=== PATIENT | male | born 1940 | race Caucasian/White ===

== ENCOUNTER 2024-05-18 19:35 | Emergency (ER) | payer MEDICARE, OTHER, SELFPAY ==
[2024-05-18 19:41] VITALS: BP 168/96
--- NOTE | 2024-05-18 20:16 | ED.GENMED ---
History of Present Illness
<Alberto Foster DO, Resident - Last Filed: 05/20/24 06:24>
General
Chief Complaint: Weakness
Source: patient and spouse
Time Seen by Provider: 05/18/24 20:05
History of Present Illness
History of Present Illness:
Pt is an 83 YO M with PMH of diabetes, chronic afib, HTN, HLD, and Chron's with ileostomy presenting to the ED after experiencing acute SOB and CP for about an hour today which awoke him from a nap. He reports never feeling this sensation before and
that it 'triggered his sciatica' as well. He reports no headaches, vomiting, ongoing chest pain, or new vision changes. He does report nausea, mild SOB, chronic numbness and tingling, and ringing in his ears.
If applicable-neuro sx onset
Onset of symptoms known: Yes
Date of onset of symptoms: 05/18/24
Past History
<Alberto Foster DO, Resident - Last Filed: 05/20/24 06:24>
Past History
ED Past Medical History: Arrthythmia (Atrial fib), CAD, Cancer (colon), GERD, HTN, Hypercholesterolemia and Other (Kidney stones, Crohns)
ED Past Surgical History: Appendectomy, Bowel resection (Colon CA, with Ileostomy), Cardiac (Stents X2 RCA) and Cholecystectomy
Social History
Tobacco: Former smoker
Alcohol: None
Drug: None
Personal:
Living: with family
Employment: Retired
Family History
Family History: Other (Noncontributory)
Review of Systems
<Alberto Foster DO, Resident - Last Filed: 05/20/24 06:24>
Review of Systems
Constitutional: Reports no symptoms
EENT: Reports no symptoms
Respiratory: Reports trouble breathing
Cardiac: Reports chest pain (lasted for 1 hour)
ABD/GI: Reports no symptoms (ileostomy )
: Reports no symptoms
Neurological: Reports dizzy, weakness and numbness (numbness and tingling secondary to sciatica)
Phy Exam
<Alberto Foster DO, Resident - Last Filed: 05/20/24 06:24>
General Physical Exam
General Presentation: well appearing and no apparent distress
General age: appears stated age
General Skin: warm and dry
General Habitus: normal and elderly
General Mental: alert
Cardiovascular Exam
Cardiovascular Exam: regular rate/rhythm, no edema, no gallop, no JVD, no murmur and normal peripheral pulses
Pulmonary Exam
Pulmonary Exam: lungs clear, no respiratory distress, no rales, chest non tender, no crackles, no rhonchi, no stridor, no wheezing and no cough
Course
<Alberto Foster DO, Resident - Last Filed: 05/20/24 06:24>
Orders/Labs/Results
Orders:
Orders
05/18/24 19:41
Electrocardiogram (*1) Urgent
Reason for Study: Chest Pain
EKG- Treatment ONCE
05/18/24 20:22
Complete Blood Count/With Diff Urgent
Comprehensive Metabolic Panel Urgent
Troponin I Urgent
05/18/24 21:50
Vital Signs- Treatment ONCE
Frequency: Once
Comment: TEMP
05/18/24 21:51
CR Chest - 2 Views Urgent
Comment:
Reason For Exam: cp, sob
05/18/24 23:27
Troponin I Urgent
05/18/24 23:40
Oxycodone/Acetaminophen [Percocet 5/325] 1 tablet PO NOW STA
05/19/24 01:06
Electrocardiogram (*1) Urgent
Reason for Study: Chest Pain
EKG- Treatment ONCE
Abnormal Lab Results
05/18/24
20:22
RBC 4.20 L 10^6/uL
(4.70-6.10)
Hgb 12.3 L g/dL
(13.0-18.0)
Hct 38.1 L %
(39.0-52.0)
MCHC 32.3 L g/dL
(33.0-37.0)
Absolute Neuts (auto) 6.9 H 10^3/uL
(1.4-6.5)
Absolute Lymphs (auto) 1.1 L 10^3/uL
(1.2-3.4)
Absolute Monos (auto) 1.3 H 10^3/uL
(0.1-0.6)
Lymphocytes % 11.0 L %
(20.5-51.1)
Monocytes % 13.9 H %
(1.7-9.3)
05/18/24 20:22
05/18/24 20:22
Vital Signs
Initial and Last Documented VS:
Initial Vital Signs
Pulse Resp BP Pulse Ox
79 24 168/96 94
05/18/24 19:41 05/18/24 19:41 05/18/24 19:41 05/18/24 19:41
Last Documented Vital Signs
Temp Pulse Resp BP Pulse Ox
98.6 F 68 20 166/72 94
05/18/24 23:43 05/18/24 23:43 05/18/24 23:43 05/19/24 01:00 05/19/24 01:15
<Trey Vasquez MD - Last Filed: 05/19/24 01:16>
Orders/Labs/Results
Orders:
Orders
05/18/24 19:41
Electrocardiogram (*1) Urgent
Reason for Study: Chest Pain
EKG- Treatment ONCE
05/18/24 20:22
Complete Blood Count/With Diff Urgent
Comprehensive Metabolic Panel Urgent
Troponin I Urgent
05/18/24 21:50
Vital Signs- Treatment ONCE
Frequency: Once
Comment: TEMP
05/18/24 21:51
CR Chest - 2 Views Urgent
Comment:
Reason For Exam: cp, sob
05/18/24 23:27
Troponin I Urgent
05/18/24 23:40
Oxycodone/Acetaminophen [Percocet 5/325] 1 tablet PO NOW STA
05/19/24 01:06
Electrocardiogram (*1) Urgent
Reason for Study: Chest Pain
EKG- Treatment ONCE
Abnormal Lab Results
05/18/24
20:22
RBC 4.20 L 10^6/uL
(4.70-6.10)
Hgb 12.3 L g/dL
(13.0-18.0)
Hct 38.1 L %
(39.0-52.0)
MCHC 32.3 L g/dL
(33.0-37.0)
Absolute Neuts (auto) 6.9 H 10^3/uL
(1.4-6.5)
Absolute Lymphs (auto) 1.1 L 10^3/uL
(1.2-3.4)
Absolute Monos (auto) 1.3 H 10^3/uL
(0.1-0.6)
Lymphocytes % 11.0 L %
(20.5-51.1)
Monocytes % 13.9 H %
(1.7-9.3)
05/18/24 20:22
05/18/24 20:22
Vital Signs
Initial and Last Documented VS:
Initial Vital Signs
Pulse Resp BP Pulse Ox
79 24 168/96 94
05/18/24 19:41 05/18/24 19:41 05/18/24 19:41 05/18/24 19:41
Last Documented Vital Signs
Temp Pulse Resp BP Pulse Ox
98.6 F 68 20 166/72 94
05/18/24 23:43 05/18/24 23:43 05/18/24 23:43 05/19/24 01:00 05/19/24 01:15
<Alberto Foster DO, Resident - Last Filed: 05/20/24 06:24>
MDM/Problems Addressed
Differential Diagnosis Includes:
angina, pre-syncope, GERD
MDM/Problems Addressed:
Pt is an 83 YO M with PMH of diabetes, chronic afib, HTN, HLD, sciatica and Chron's with ileostomy presenting to the ED after experiencing acute SOB and CP for about an hour today which awoke him from a nap. Chest pain resolved but ongoing
intermittent SOB and nausea. Chest Xray normal. Blood work and troponin normal.
Chronic conditions affecting care:
Sciatica, Afib
Acute Exacerbation and/or Progression of Chronic Illness:
Sciatica,Afib
<Alberto Foster DO, Resident - Last Filed: 05/20/24 06:24>
*Radiology
Radiology exam reviewed: radiology read reviewed
*Pulse Oximetry
Patient hypoxic: no
*EKG
Interpreted by ED Provider?: Yes
EKG Intrepretation Date: 05/18/24
Heart Rate: 73
Rate: normal
Rhythm: a-fib
*Supervisor Machining Interpretation
Rate: normal
Interpretation: normal
Heart Rate: 85
*Critical Care Note
Total Time (30-74mins, 75-104mins- exclusive of procedures): Not Applicable
<Alberto Foster DO, Resident - Last Filed: 05/20/24 06:24>
Patient Management
Social determinants of health affecting care: Living situation and Strong social support
<Alberto Foster DO, Resident - Last Filed: 05/20/24 06:24>
Update Note
Update Note:
Percocet 5-325mg single dose given. Patient takes medication daily around midnight.
ED Attending Note
<Alberto Foster DO, Resident - Last Filed: 05/20/24 06:24>
-
Portions of this chart may have been created with voice recognition software.� Occasional wrong word or��sound alike� substitutions may have occurred due to the inherent limitations of voice recognition software.
<Trey Vasquez MD - Last Filed: 05/19/24 01:16>
ED Attending Note
Patient seen and examined by attending physician: Yes
I performed a history and physical exam of patient and discussed management with resident, I reviewed resident's note and agree with documented findings and plan of care.: Yes
ED Attending Note:
I have seen and evaluated the patient with a [id number] encounter. I have spoken to the resident and involved in the medical history, the physical exam, medical decision making.
Evaluation and management service: agree unless noted differently below.
Results interpretation: agree unless noted differently below.
Focused HPI: 83-year-old male with a past medical history as documented presents to the emergency room for evaluation after an episode of chest pain. Patient reports that he was taking a nap around 6:15 PM when he woke up with some heaviness in his
chest. He says he had some mild nausea. He says that his sciatica pain in his back and leg were acting up at the time�this has been a chronic issue for him. He says that this lasted for few minutes and resolved. He was very concerned that
perhaps he had poisoned himself because he had just applied Eucerin cream to his face and he noticed that some of it was pushed into the side of his mouth while he was napping. He came to the emergency room for assessment. He is currently chest
pain-free. No exertional symptoms.
Physical exam: Awake alert not in distress. Hypertensive with very mild tachypnea but otherwise normal vitals. No cardiac rubs gallops or murmurs. Lungs clear to auscultation bilaterally. He has an ostomy in place, site appears clean. Abdomen
nontender. No leg edema. Extremities warm well-perfused.
Medical Decision Makin-year-old male presents for evaluation of atypical chest pain that lasted for few minutes�his main concern was that perhaps he pours himself accidentally with Eucerin cream as described above. Currently chest pain-free.
Hypertensive with mild tachypnea which improved by my assessment. Exam as above. EKG appears to show A-fib which is a chronic issue for the patient. Will plan to place an IV check labs including CBC and CMP, serial troponins. Will check chest
x-ray. Will monitor on telemetry reassess after the above.
Patient requesting a dose of his chronic pain medication which we will provide.
Labs reviewed: CBC unremarkable, CMP no clinically significant abnormalities. Troponin undetectable x 1�repeat pending. Chest x-ray reviewed by me shows no acute disease.
Repeat troponin undetectable. Patient remains well-appearing, chest pain-free. Stable for discharge to follow-up with his primary care physician and health information coder as an outpatient. Patient comfortable with this plan. Spoke about return
precautions all questions answered.
Discharge Plan
Departure
Patient Disposition: Home (Routine Discharge)
Date of Disposition: 05/19/24
Time of Disposition: 01:15
Patient with high blood pressure during this ER visit?: Yes
Discharge Problem:
Chest pain, Hypertension
Instructions: Chest Pain CBC Follow Up, BLOOD PRESSURE
Prescriptions:
No Action
cyclobenzaprine 10 MG tablet
10 mg PO BIDPRN PRN (Reason: muscle spasm)
metformin 500 MG tablet
500 mg PO BID@0800,1700
atorvastatin 10 MG tablet
10 mg PO QPM
fluticasone propionate 1 SPRAY spray,suspension
2 spray intranasal DAILY
amlodipine 5 MG tablet
5 mg PO QPM
furosemide 20 MG tablet
20 mg PO MOWEFR
bimatoprost [Lumigan] 1 DROP drops
1 drp BOTH EYES QPM
citalopram 10 MG tablet
10 mg PO DAILY
pantoprazole 40 MG tablet,delayed release (DR/EC)
40 mg PO BID Qty: 60 0RF
aspirin 81 MG tablet,delayed release (DR/EC)
81 mg PO DAILY Qty: 0 0RF
Rx Instructions:
DO NOT RESUME UNTIL 12/20/20
apixaban [Eliquis] 5 MG tablet
5 mg PO BID Qty: 0 0RF
Rx Instructions:
DO NOT RESUME UNTIL 12/20/20
albuterol sulfate [Ventolin HFA] 90 MCG/PUFF HFA aerosol inhaler
1 puff inhalation Q6HPRN PRN (Reason: shortness of breath)
lidocaine [Aspercreme (lidocaine)] 1 PATCH adhesive patch,medicated
1 patch topical DAILY Qty: 30 0RF
Rx Instructions:
back
isosorbide mononitrate 30 MG tablet extended release 24 hr
30 mg PO DAILY Qty: 30 0RF
gabapentin 100 MG capsule
100 mg PO BID Qty: 60 0RF
oxycodone 10 MG tablet
10 mg PO Q4HPRN PRN (Reason: severe pain) Qty: 10 0RF
oxycodone-acetaminophen 5 MG/325 MG tablet
1 tablets PO Q8HPRN MDD 3 tabs PRN (Reason: moderate pain) 3 Days Qty: 6 0RF
Referrals:
Reese Yoon, DO [Active] - Call in 1-3 days for appt
NONE,* [Active] -
Activity Restrictions/Additional Instructions:
Thank you for visiting the Emergency Department at [facility].
1. Please schedule a follow up appointment as directed. Call first thing tomorrow morning to make an appointment.
2. If indicated, please take your medications as instructed and indicated on discharge paperwork.
3. If any of your symptoms do not improve, or persist, or become more severe within 6-12 hours, please return to the emergency department for further care.
4. Please return to the emergency department if you develop a headache, neck pain/stiffness, fever greater than 100.4F, chest pain, shortness of breath, persistent nausea, vomiting, slurred speech, difficulty walking, numbness/tingling, weakness,
signs of infection or any other symptoms that are worrisome to you.
Please call [phone] if you have any questions.
Interventions
Interventions:
*Risk Screen - Suicide Last Done: 05/18/24 19:37
*General Assessment Last Done: 05/18/24 19:37
*Neglect/Abuse Screening Last Done: 05/18/24 19:37
ED- Fall Risk Assessment Last Done: 05/19/24 01:20
*ED COVID-19 Vaccine History Last Done: 05/18/24 19:37
*Nursing Disposition Last Done: 05/19/24 01:20
ED- Cardiac Assessment Last Done: 05/18/24 21:22
ED- Neurological Assessment Last Done: 05/18/24 21:22
ED- Pulmonary Assessment Last Done: 05/18/24 21:22
Discharge Date and Time
Discharge Date/Time: 05/19/24 01:20
Print Language: TRINIDADIAN
[2024-05-18 20:30] LABS: % Basophils 0.7 % (0-2); % Eosinophils 2.4 % (0-6); % Immature Granulocytes 0.2 % (0-0.5); % Monocytes 13.9 % (1.7-9.3); % Neutrophils 71.8 % (42.2-75.2); Absolute Basophils 0.1 10^3/uL (0-0.2); Absolute Eosinophils 0.2 10^3/uL (0-0.7); Absolute Lymphocytes 1.1 10^3/uL (1.2-3.4); Absolute Monocytes 1.3 10^3/uL (0.1-0.6); Absolute Neutrophils 6.9 10^3/uL (1.4-6.5); Hematocrit 38.1 % (39.0-52.0); Hemoglobin 12.3 g/dL (13.0-18.0); Mean Corp Hgb Conc. 32.3 g/dL (33.0-37.0); Mean Corpuscular Hgb 29.3 pg (27.0-31.0); Mean Corpuscular Volume 90.7 fL (80.0-94.0); Mean Platelet Volume 9.4 fL (7.4-10.4); Nucleated Red Blood Cells % 0 % (-); Platelet Count 300 10^3/uL (130-400); White Blood Cell Count 9.6 10^3/uL (4.8-10.8)
[2024-05-18 20:52] LABS: Troponin I < 0.012 ng/ml
[2024-05-18 20:56] LABS: ALT (SGPT) 16 U/L (0-50); AST (SGOT) 27 U/L (17-59); Albumin 4.4 g/dl (3.5-5.0); Alkaline Phosphatase 91 U/L (38-126); Blood Urea Nitrogen 9 mg/dl (9-20); Calcium 9.1 mg/dl (8.4-10.2); Carbon Dioxide 27 mmol/L (22-30); Chloride 102 mmol/L (98-107); Glucose 91 mg/dl (70-99); Potassium 4.4 mmol/L (3.5-5.1); Sodium 136 mmol/L (135-145); Total Bilirubin 0.4 mg/dl (0.2-1.3); eGFR > 60.00
[2024-05-18 23:40] VITALS: BP 176/75
[2024-05-18 23:43] VITALS: BP 176/75
[2024-05-18] MEDS: PERCOCET 5/325 1 TABLET PO (23:52)
[2024-05-18 23:53] VITALS: BMI 25.6
[2024-05-19] VITALS: BP 185/79
[2024-05-19 00:39] LABS: Troponin I < 0.012 ng/ml
[2024-05-19 01:00] VITALS: BP 166/72
== END 2024-05-19 01:20 | disposition home or self-care (01) ==
LOC: EMR 19:35
PROVIDERS: Emergency Medicine; EMERGENCY PHYSICIAN Emergency Medicine
DX: R07.89 Other chest pain (principal); I10 Essential (primary) hypertension; E78.5 Hyperlipidemia, unspecified; E11.9 Type 2 diabetes mellitus without complications
CPT/HCPCS: 99285; 71046; 80053; 84484; 85025; 93005; 99283

== ENCOUNTER 2024-05-20 18:54 | Emergency (ER) | payer MEDICARE, OTHER, SELFPAY ==
[2024-05-20 18:58] VITALS: BP 134/65; BMI 26.2
[2024-05-20 19:29] LABS: % Basophils 0.3 % (0-2); % Immature Granulocytes 0.3 % (0-0.5); % Lymphocytes 6.1 % (20.5-51.1); % Monocytes 22.9 % (1.7-9.3); % Neutrophils 70.4 % (42.2-75.2); Absolute Lymphocytes 0.5 10^3/uL (1.2-3.4); Absolute Monocytes 1.7 10^3/uL (0.1-0.6); Absolute Neutrophils 5.3 10^3/uL (1.4-6.5); Hematocrit 38.4 % (39.0-52.0); Hemoglobin 12.5 g/dL (13.0-18.0); Mean Corp Hgb Conc. 32.6 g/dL (33.0-37.0); Mean Corpuscular Hgb 29.3 pg (27.0-31.0); Mean Corpuscular Volume 89.9 fL (80.0-94.0); Mean Platelet Volume 9.4 fL (7.4-10.4); Nucleated Red Blood Cells % 0 % (-); Platelet Count 248 10^3/uL (130-400); Red Blood Cell Count 4.27 10^6/uL (4.70-6.10); Red Cell Dist. Width 13.8 % (11.5-14.5); White Blood Cell Count 7.5 10^3/uL (4.8-10.8)
[2024-05-20 20:06] LABS: Troponin I < 0.012 ng/ml
[2024-05-20 20:10] VITALS: BP 161/69
--- NOTE | 2024-05-20 20:38 | ED.GENMED ---
History of Present Illness
General
Chief Complaint: Abdominal Pain
Source: patient
Exam Limitations: none
Time Seen by Provider: 05/20/24 20:26
History of Present Illness
History of Present Illness:
Pleasant 83-year-old male presents with left lower quadrant abdominal pain that has been progressively worsening for the last 3 days. Patient does have history of irritable bowel syndrome and has had a colectomy in the past. Patient states that
his ostomy output has been normal without blood or change in color or consistency.
Vital signs are stable. Patient not hypoxic
Nursing note reviewed. I agree with nursing documentation up to this point in time.
Home Meds and allergies reviewed.
NUMBER AND COMPLEXITY OF PROBLEMS ADDRESSED AT THE ENCOUNTER
� Chronic conditions affecting care:
� Acute Exacerbation and/or Progression of Chronic Illness:
� Differential Diagnosis includes: IBS, bowel obstruction, diverticulitis
AMOUNT AND/OR COMPLEXITY OF DATA TO BE REVIEWED AND ANALYZED
I performed an independent evaluation of the following and my interpretation is:
EKG:
CT:CT abdomen pelvis with IV contrast
Comparison: Chest, abdomen, and pelvis CTA of 12/12/21
IMPRESSION:
No acute process identified.
Mildly nodular liver contour. Cholecystectomy. No biliary dilatation. Stable left adrenal nodule measuring approximately 2.3 x 1.5 cm. Stable nodular thickening of the right adrenal gland.
Exophytic left anterior renal cyst measuring 7.0 x 6.0 cm. Stable 1.4 x 1.3 cm exophytic hyperdense lesion from the upper right kidney possibly a hyperdense cyst and adjacent tiny cyst. No hydronephrosis or obstructing urinary calculi. Bladder is
unremarkable. Mild prostatomegaly.
Prior colectomy with right lower quadrant ileostomy. 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 No free fluid or free air.
Prominent vascular calcifications. No AAA or dissection.
Mild atelectasis at the lung bases. Mild cardiomegaly.
Moderate degenerative changes within the spine.
X-rays:
Ultrasound:
Laboratory Studies: Troponin is less than 0.01.
Other:
Review of other/old records:
Clinical information was obtained by an independent historian:
Prescriptions/Medications Considered but not given:
Further testing considered but not performed:
RISK OF COMPLICATIONS AND/OR MORBIDITY OR MORTALITY OF PATIENT MANAGEMENT
Social determinants of health affecting care: Good Social Support daughter present at the bedside
Discussion with other providers:
Escalation of care including admission/observation vs risk of discharge considered:
CRITICAL CARE NOTE:
Total Time (exclusive of procedures):
Update:
Past History
Past History
ED Past Medical History: Arrthythmia (Atrial fib), CAD, Cancer (colon), GERD, HTN, Hypercholesterolemia and Other (Kidney stones, Crohns)
ED Past Surgical History: Appendectomy, Bowel resection (Colon CA, with Ileostomy), Cardiac (Stents X2 RCA) and Cholecystectomy
Social History
Tobacco: Former smoker
Alcohol: None
Drug: None
Personal:
Living: with family
Employment: Retired
Family History
Family History: Other (Noncontributory)
Review of Systems
Review of Systems
Allergies reviewed?: Yes
Other source history: family
All Other Systems: Not applicable
Constitutional: Reports no symptoms
EENT: Reports no symptoms
Respiratory: Denies cough or trouble breathing
Cardiac: Reports no symptoms
ABD/GI: Reports abdominal pain; Denies nausea, diarrhea or constipated
: Reports no symptoms
Musculoskeletal: Reports no symptoms
Skin: Reports no symptoms
Neurological: Reports no symptoms
Endocrine: Reports no symptoms
Hematologic/Lymphatic: Reports no symptoms
Psychiatric: Reports no symptoms
Phy Exam
General Physical Exam
General Presentation: well appearing and no apparent distress
General Skin: warm and dry
General Habitus: normal
General Mental: alert
General Hydration: appears well hydrated
ENT Exam
ENT Exam: EOMI, pharynx normal, neck supple and normocephalic
Eye Exam
Eye Exam: PERRL, cornea clear and conjunctiva normal
Cardiovascular Exam
Cardiovascular Exam: regular rate/rhythm, no edema, no murmur and normal peripheral pulses
Pulmonary Exam
Pulmonary Exam: lungs clear, no respiratory distress, no rales, no crackles, no rhonchi, no stridor, no wheezing and no cough
Gastrointestinal Exam
Gastrointestinal Exam: normal bowel sounds, soft, no organomegaly and non distended
External Findings: colostomy
Auscultation of Abdomen: hyperactive
Neurological Exam
Neurological Exam: alert, oriented x3, no motor deficits and speech normal
Musculoskeletal Exam
Musculoskeletal Exam: full ROM and no edema
Skin Exam
Skin Exam: normal color, warm/dry, no rash and no petechia
Psychiatric Exam
Psychiatric Exam: normal mood/affect
Course
Orders/Labs/Results
Orders:
Orders
05/20/24 19:00
Electrocardiogram (*1) Urgent
Reason for Study: Chest Pain
EKG- Treatment ONCE
05/20/24 19:18
Complete Blood Count/With Diff Urgent
Troponin I Urgent
05/20/24 20:23
Comprehensive Metabolic Panel Urgent
Lipase Urgent
05/20/24 20:34
CT Abd/pelvis W Iv Cont Urgent
Comment:
Reason For Exam: LLQ abd pain
Abnormal Lab Results
05/20/24 05/20/24
19:18 20:23
RBC 4.27 L 10^6/uL
(4.70-6.10)
Hgb 12.5 L g/dL
(13.0-18.0)
Hct 38.4 L %
(39.0-52.0)
MCHC 32.6 L g/dL
(33.0-37.0)
Absolute Lymphs (auto) 0.5 L 10^3/uL
(1.2-3.4)
Absolute Monos (auto) 1.7 H 10^3/uL
(0.1-0.6)
Lymphocytes % 6.1 L %
(20.5-51.1)
Monocytes % 22.9 H %
(1.7-9.3)
Sodium 132 L mmol/L
(135-145)
Glucose 122 H mg/dl
(70-99)
05/20/24 19:18
05/20/24 20:23
Vital Signs
Initial and Last Documented VS:
Initial Vital Signs
Temp Pulse Resp BP Pulse Ox
98.6 F 80 16 134/65 99
05/20/24 18:58 05/20/24 18:58 05/20/24 18:58 05/20/24 18:58 05/20/24 18:58
Last Documented Vital Signs
Temp Pulse Resp BP Pulse Ox
98.6 F 76 26 163/75 92
05/20/24 18:58 05/20/24 21:45 05/20/24 21:45 05/20/24 22:00 05/20/24 21:45
*Critical Care Note
Total Time (30-74mins, 75-104mins- exclusive of procedures): Not Applicable
Update Note
Update Note:
Discussed CAT scan and lab work findings with patient and family. They will follow-up with their cardiothoracic physiotherapist. They have no further questions at this time. Patient being discharged in stable and improved condition.
ED Attending Note
-
Portions of this chart may have been created with voice recognition software.� Occasional wrong word or��sound alike� substitutions may have occurred due to the inherent limitations of voice recognition software.
Discharge Plan
Departure
Patient Disposition: Home (Routine Discharge)
Date of Disposition: 05/20/24
Time of Disposition: 22:50
Patient with high blood pressure during this ER visit?: Yes
Discharge Problem:
Abdominal pain
Instructions: Clear Liquid Diet, Abdominal Pain, BLOOD PRESSURE
Prescriptions:
No Action
cyclobenzaprine 10 MG tablet
10 mg PO BIDPRN PRN (Reason: muscle spasm)
metformin 500 MG tablet
500 mg PO BID@0800,1700
atorvastatin 10 MG tablet
10 mg PO QPM
fluticasone propionate 1 SPRAY spray,suspension
2 spray intranasal DAILY
amlodipine 5 MG tablet
5 mg PO QPM
furosemide 20 MG tablet
20 mg PO MOWEFR
bimatoprost [Lumigan] 1 DROP drops
1 drp BOTH EYES QPM
citalopram 10 MG tablet
10 mg PO DAILY
pantoprazole 40 MG tablet,delayed release (DR/EC)
40 mg PO BID Qty: 60 0RF
aspirin 81 MG tablet,delayed release (DR/EC)
81 mg PO DAILY Qty: 0 0RF
Rx Instructions:
DO NOT RESUME UNTIL 12/20/20
apixaban [Eliquis] 5 MG tablet
5 mg PO BID Qty: 0 0RF
Rx Instructions:
DO NOT RESUME UNTIL 12/20/20
albuterol sulfate [Ventolin HFA] 90 MCG/PUFF HFA aerosol inhaler
1 puff inhalation Q6HPRN PRN (Reason: shortness of breath)
lidocaine [Aspercreme (lidocaine)] 1 PATCH adhesive patch,medicated
1 patch topical DAILY Qty: 30 0RF
Rx Instructions:
back
isosorbide mononitrate 30 MG tablet extended release 24 hr
30 mg PO DAILY Qty: 30 0RF
gabapentin 100 MG capsule
100 mg PO BID Qty: 60 0RF
oxycodone 10 MG tablet
10 mg PO Q4HPRN PRN (Reason: severe pain) Qty: 10 0RF
oxycodone-acetaminophen 5 MG/325 MG tablet
1 tablets PO Q8HPRN MDD 3 tabs PRN (Reason: moderate pain) 3 Days Qty: 6 0RF
Referrals:
[facility] [Outside]
Mo Reza MD [Family Provider] -
Activity Restrictions/Additional Instructions:
As discussed, please follow-up with Dr. Reza's office to get a new cardiothoracic physiotherapist assigned to you for follow-up. Call the [facility] for help in finding a urban redevelopment specialist
It was a pleasure meeting you and taking part in your care. We hope for your continued healing and wellness.
Please read discharge instructions in their entirety. However, they are for general education and may not describe your exact diagnosis at discharge. Information on your ER visit and medical conditions were discussed with you along with appropriate
follow up information...
If indicated, please take your medications as instructed and indicated on discharge paperwork.
Please schedule a follow up appointment as directed. Call to schedule an appointment
Please return to the emergency department with ANY change in, persisting, or worsening of symptoms. If any of your symptoms do not improve, or persist, or become more severe within 6-12 hours, please return to the emergency department for further
care.
Please return to the emergency department if you develop a headache, neck pain/stiffness, fever greater than 100.4F, chest pain, shortness of breath, persistent nausea, vomiting, slurred speech, difficulty walking, numbness/tingling, weakness, signs
of infection or any other symptoms that are worrisome to you.
If you have any questions or concerns please do not hesitate to call the Hospital at or E-mail me directly at
Interventions
Interventions:
*Risk Screen - Suicide Last Done: 05/20/24 18:58
*General Assessment Last Done: 05/20/24 20:13
*Neglect/Abuse Screening Last Done: 05/20/24 18:58
ED- Fall Risk Assessment Last Done: 05/20/24 18:58
*ED COVID-19 Vaccine History Last Done: 05/20/24 20:13
*Nursing Disposition Last Done: 05/20/24 23:37
[id number] Assessment Last Done: 05/20/24 20:13
Discharge Date and Time
Discharge Date/Time: 05/20/24 23:38
Print Language: SINHALA
[2024-05-20 21:00] VITALS: BP 160/70
[2024-05-20 21:00] LABS: ALT (SGPT) 18 U/L (0-50); AST (SGOT) 40 U/L (17-59); Albumin 4.3 g/dl (3.5-5.0); Alkaline Phosphatase 67 U/L (38-126); Blood Urea Nitrogen 12 mg/dl (9-20); Calcium 9.1 mg/dl (8.4-10.2); Carbon Dioxide 24 mmol/L (22-30); Chloride 99 mmol/L (98-107); Estimated Creatinine Clearance 56 ml/min; Glucose 122 mg/dl (70-99); Lipase 50 U/L (23-300); Sodium 132 mmol/L (135-145); Total Bilirubin 0.8 mg/dl (0.2-1.3); Total Protein 6.9 g/dl (6.3-8.2); eGFR > 60.00
[2024-05-20 22:00] VITALS: BP 163/75
== END 2024-05-20 23:38 | disposition home or self-care (01) ==
LOC: EMR 18:54
PROVIDERS: Student in an Organized Health Care Education/Training Program; EMERGENCY PHYSICIAN Student in an Organized Health Care Education/Training Program; FAMILY PHYSICIAN Specialist
DX: R10.32 Left lower quadrant pain (principal); K58.9 Irritable bowel syndrome, unspecified; N28.1 Cyst of kidney, acquired; J98.11 Atelectasis; I51.7 Cardiomegaly; N40.0 Benign prostatic hyperplasia without lower urinary tract symptoms; K43.5 Parastomal hernia without obstruction or gangrene; I10 Essential (primary) hypertension; I48.91 Unspecified atrial fibrillation; K21.9 Gastro-esophageal reflux disease without esophagitis; E78.00 Pure hypercholesterolemia, unspecified; I25.10 Atherosclerotic heart disease of native coronary artery without angina pectoris; K50.90 Crohn's disease, unspecified, without complications; Z79.01 Long term (current) use of anticoagulants; Z93.3 Colostomy status; Z98.0 Intestinal bypass and anastomosis status; Z90.49 Acquired absence of other specified parts of digestive tract; Z87.442 Personal history of urinary calculi; Z87.891 Personal history of nicotine dependence; Z95.5 Presence of coronary angioplasty implant and graft; Z85.038 Personal history of other malignant neoplasm of large intestine
CPT/HCPCS: 99285; 74177; 80053; 83690; 84484; 85025; 93005; Q9967

== ENCOUNTER → 2024-06-14 13:09 | Outpatient (REF) | payer MEDICARE, OTHER, SELFPAY ==
[2024-06-15 08:30] LABS: Glycohemoglobin (HgbA1c) 5.9 % (4.0-5.6)
== END ==
LOC: REG 13:09
DX: E11.9 Type 2 diabetes mellitus without complications (principal)
CPT/HCPCS: 36415; 83036

== ENCOUNTER → 2024-09-12 12:16 | Outpatient (REF) | payer MEDICARE, OTHER, SELFPAY | LOC: UCDH 12:16 | PROVIDERS: ATTENDING PHYSICIAN Physician Assistant Medical; FAMILY PHYSICIAN Internal Medicine | DX: S80.11XA Contusion of right lower leg, initial encounter (principal) | CPT/HCPCS: 73590 ==

== ENCOUNTER 2024-11-03 15:58 | Emergency (ER) | payer MEDICARE, OTHER, SELFPAY ==
[2024-11-03 16:16] VITALS: BP 154/60
[2024-11-03 16:39] LABS: % Basophils 0.5 % (0-2); % Eosinophils 1.1 % (0-6); % Immature Granulocytes 0.2 % (0-0.5); % Lymphocytes 7.4 % (20.5-51.1); % Monocytes 12.9 % (1.7-9.3); % Neutrophils 77.9 % (42.2-75.2); Absolute Basophils 0.1 10^3/uL (0-0.2); Absolute Eosinophils 0.1 10^3/uL (0-0.7); Absolute Lymphocytes 0.7 10^3/uL (1.2-3.4); Absolute Monocytes 1.2 10^3/uL (0.1-0.6); Absolute Neutrophils 7.3 10^3/uL (1.4-6.5); Hematocrit 38.4 % (39.0-52.0); Hemoglobin 12.3 g/dL (13.0-18.0); Mean Corpuscular Hgb 29.8 pg (27.0-31.0); Mean Platelet Volume 8.8 fL (7.4-10.4); Nucleated Red Blood Cells % 0 % (-); Platelet Count 286 10^3/uL (130-400); Red Blood Cell Count 4.13 10^6/uL (4.70-6.10); Red Cell Dist. Width 14.3 % (11.5-14.5); White Blood Cell Count 9.4 10^3/uL (4.8-10.8)
[2024-11-03 16:54] LABS: ALT (SGPT) 15 U/L (0-50); AST (SGOT) 19 U/L (17-59); Albumin 4.1 g/dl (3.5-5.0); Alkaline Phosphatase 83 U/L (38-126); Blood Urea Nitrogen 11 mg/dl (9-20); Carbon Dioxide 24 mmol/L (22-30); Chloride 97 mmol/L (98-107); Glucose 187 mg/dl (70-99); Potassium 4.4 mmol/L (3.5-5.1); Sodium 130 mmol/L (135-145); Total Bilirubin 0.4 mg/dl (0.2-1.3); Total Protein 6.5 g/dl (6.3-8.2); eGFR > 60.00
[2024-11-03 20:35] VITALS: BP 175/80
[2024-11-03 20:42] VITALS: BMI 27.0
[2024-11-03 20:45] LABS: Urine Albumin Negative (Neg - Trace); Urine Bilirubin Negative (Negative); Urine Character Clear (Clear); Urine Color Yellow; Urine Glucose Negative (Negative); Urine Ketone Negative (Negative); Urine Leukocyte Trace (Negative); Urine Nitrite Negative (Negative); Urine Occult Blood Negative (Negative); Urine Specific Gravity 1.015 (<1.030); Urine Urobilinogen Negative (Neg - 1+)
[2024-11-03 20:52] LABS: Urine Hyaline Cast 0-2 /LPF (0-2); Urine Red Blood Cell 0-2 /HPF (0-2); Urine White Cell 0-2 /HPF (0-5)
[2024-11-03 21:00] VITALS: BP 161/74
--- NOTE | 2024-11-03 22:06 | ED.GENMED ---
History of Present Illness
General
Chief Complaint: Abdominal Symptoms
Source: patient
Exam Limitations: none
Time Seen by Provider: 11/03/24 20:42
History of Present Illness
History of Present Illness:
This is a 84 year old male that comes in as he was referred from [facility]. States that he went to them as he thought he had a UTI. States that this started a couple of days ago. States that the doctor there thought is stool in his
Ileostomy was to dark and sent him to the ER. Patient states that he has chest pain all the time and this is not different. Denies any fever, chills, SOB, abd pain, nausea, vomiting, headache, dizziness, or urinary burning.
Past History
Past History
ED Past Medical History: Arrthythmia (Atrial fib), CAD, Cancer (colon), GERD, HTN, Hypercholesterolemia, NIDDM, Psychiatric (Anxiety) and Other (Kidney stones, Crohns, Back pain, Sciatica, Tingling in arms and legs, Sinus infections. Eczema, IBS,
Chronic foot pain, )
ED Past Surgical History: Appendectomy, Bowel resection (Colon CA, with Ileostomy), Cardiac (Stents X2 RCA), Cholecystectomy and Other (Alvaro cataracts, Lipoma removed from left shoulder, Left eye stent, )
Social History
Tobacco: Former smoker
Alcohol: None
Drug: None
Personal:
Living: with family
Employment: Retired
Family History
Family History: Other (Noncontributory)
Review of Systems
Review of Systems
All Other Systems: ROS reviewed and negative except as documented in HPI and ROS
Constitutional: Reports no symptoms; Denies fever or chills
EENT: Reports no symptoms
Respiratory: Reports no symptoms; Denies cough or trouble breathing
Cardiac: Reports chest pain (Chronic)
ABD/GI: Reports other (Brown stool in ileostomy); Denies abdominal pain, nausea or vomiting
: Reports no symptoms; Denies dysuria, frequency or urgency
Musculoskeletal: Reports no symptoms
Skin: Reports no symptoms
Neurological: Reports no symptoms; Denies dizzy or headache
Psychiatric: Reports no symptoms
Phy Exam
General Physical Exam
General Presentation: well appearing and no apparent distress
General age: appears stated age
General Skin: warm and dry
General Habitus: elderly
General Mental: alert
General Hydration: appears well hydrated
ENT Exam
ENT Exam: TM's normal, pharynx normal and neck supple
Eye Exam
Eye Exam: EOMI
Cardiovascular Exam
Cardiovascular Exam: regular rate/rhythm and normal peripheral pulses
Pulmonary Exam
Pulmonary Exam: no respiratory distress, chest non tender, no rhonchi, no wheezing, no cough and other (Fine crackles right base)
Gastrointestinal Exam
Gastrointestinal Exam: normal bowel sounds, non tender, soft, no organomegaly, no pulsatile mass and non distended
External Findings: ileostomy (Brown stool noted, Hem positive)
Musculoskeletal Exam
Musculoskeletal Exam: full ROM and edema (+2 pitting edema lower legs)
Skin Exam
Skin Exam: normal color, warm/dry, no rash and no petechia
Psychiatric Exam
Psychiatric Exam: normal mood/affect
Course
Orders/Labs/Results
Orders:
Orders
11/03/24 16:24
Comprehensive Metabolic Panel Urgent
11/03/24 16:25
Complete Blood Count/With Diff Urgent
11/03/24 20:36
Urinalysis Reflex To Culture Urgent
Date Specimen was Collected: 11/03/24
Time Specimen was Collected: 16:18
Urine Microscopic Reflex Cult Urgent
Abnormal Lab Results
11/03/24 11/03/24 11/03/24
16:24 16:25 20:36
RBC 4.13 L 10^6/uL
(4.70-6.10)
Hgb 12.3 L g/dL
(13.0-18.0)
Hct 38.4 L %
(39.0-52.0)
MCHC 32.0 L g/dL
(33.0-37.0)
Absolute Neuts (auto) 7.3 H 10^3/uL
(1.4-6.5)
Absolute Lymphs (auto) 0.7 L 10^3/uL
(1.2-3.4)
Absolute Monos (auto) 1.2 H 10^3/uL
(0.1-0.6)
Neutrophils % 77.9 H %
(42.2-75.2)
Lymphocytes % 7.4 L %
(20.5-51.1)
Monocytes % 12.9 H %
(1.7-9.3)
Sodium 130 L mmol/L
(135-145)
Chloride 97 L mmol/L
(98-107)
Glucose 187 H mg/dl
(70-99)
Leukocyte Esterase Rfl Trace A
(Negative)
11/03/24 16:25
11/03/24 16:24
H/H slightly low consistent with prior labs, hyponatremia, Chloride slightly low. Hyperglycemia Urine negative for infection.
Vital Signs
Initial and Last Documented VS:
Initial Vital Signs
Temp Pulse Resp BP Pulse Ox
98.5 F 56 18 154/60 96
11/03/24 16:16 11/03/24 16:16 11/03/24 16:16 11/03/24 16:16 11/03/24 16:16
Last Documented Vital Signs
Temp Pulse Resp BP Pulse Ox
98.5 F 61 16 161/74 95
11/03/24 16:16 11/03/24 20:42 11/03/24 20:42 11/03/24 21:00 11/03/24 22:15
Energy Broker consulted with Physician
Energy Broker consulted with physician?: Yes
Name of Physician Consulted: Dr. Sanchez
MDM/Problems Addressed
Differential Diagnosis Includes:
Stool Check, Gi Bleeding
MDM/Problems Addressed:
This is a 84 year old male that comes in with c/o needing to have his stool checked. States that the doctor at [facility] thought that his stool was to dark.
Will check labs, urine and Hematest stool.
Back into see patient. Explained that his stool was hem positive. Explained that his blood work is consistent with prior labs and patient has no complaints. Patient at this time states that he does take a lot of Aspirin. Encouraged patient to stop
the aspirin as he is on Eliquis. Patient is also taking Protonix and encouraged him to take this as directed. Patient to follow up with the GI specialist for further evaluation. Patient to return with any black or bloody stool, or any other
concerns.
Chronic conditions affecting care: DM and Cancer
Acute Exacerbation and/or Progression of Chronic Illness:
NA
*Pulse Oximetry
Patient hypoxic: no
*EKG
Interpreted by ED Provider?: NA
Rate: EKG- N/A
*Radio Control Crane Operator Interpretation
Rate: Radio Control Crane Operator- N/A
*Critical Care Note
Total Time (30-74mins, 75-104mins- exclusive of procedures): Not Applicable
ED Attending Note
-
Portions of this chart may have been created with voice recognition software.� Occasional wrong word or��sound alike� substitutions may have occurred due to the inherent limitations of voice recognition software.
Discharge Plan
Departure
Patient Disposition: Home (Routine Discharge)
Date of Disposition: 11/03/24
Time of Disposition: 22:24
Patient with high blood pressure during this ER visit?: No
Condition: Good
Covid-19: Not Applicable
Discharge Problem:
Hematest positive stools
Instructions: BLOOD PRESSURE
Prescriptions:
No Action
cyclobenzaprine 10 MG tablet
10 mg PO BIDPRN PRN (Reason: muscle spasm)
metformin 500 MG tablet
500 mg PO BID@0800,1700
atorvastatin 10 MG tablet
10 mg PO QPM
fluticasone propionate 1 SPRAY spray,suspension
2 spray intranasal DAILY
amlodipine 5 MG tablet
5 mg PO QPM
furosemide 20 MG tablet
20 mg PO MOWEFR
bimatoprost [Lumigan] 1 DROP drops
1 drp BOTH EYES QPM
citalopram 10 MG tablet
10 mg PO DAILY
pantoprazole 40 MG tablet,delayed release (DR/EC)
40 mg PO BID Qty: 60 0RF
aspirin 81 MG tablet,delayed release (DR/EC)
81 mg PO DAILY Qty: 0 0RF
Rx Instructions:
DO NOT RESUME UNTIL 12/20/20
apixaban [Eliquis] 5 MG tablet
5 mg PO BID Qty: 0 0RF
Rx Instructions:
DO NOT RESUME UNTIL 12/20/20
albuterol sulfate [Ventolin HFA] 90 MCG/PUFF HFA aerosol inhaler
1 puff inhalation Q6HPRN PRN (Reason: shortness of breath)
lidocaine [Aspercreme (lidocaine)] 1 PATCH adhesive patch,medicated
1 patch topical DAILY Qty: 30 0RF
Rx Instructions:
back
isosorbide mononitrate 30 MG tablet extended release 24 hr
30 mg PO DAILY Qty: 30 0RF
gabapentin 100 MG capsule
100 mg PO BID Qty: 60 0RF
oxycodone 10 MG tablet
10 mg PO Q4HPRN PRN (Reason: severe pain) Qty: 10 0RF
oxycodone-acetaminophen 5 MG/325 MG tablet
1 tablets PO Q8HPRN MDD 3 tabs PRN (Reason: moderate pain) 3 Days Qty: 6 0RF
Referrals:
Evan Coats MD [Active] - Follow up in 2-3 days
JOELLE VELÁZQUEZ MD [Family Provider] -
Activity Restrictions/Additional Instructions:
As discussed, your stool is hem positive. However, your blood work is consistent with prior labs. Please stop the aspirin that you are taking for pain and Use Tylenol 1000mg every 6 hours for pain. Please call the GI specialist office and set up an
appointment for further evaluation. Please continue to take Your Protonix as directed. IF YOU HAVE ABDOMINAL PAIN, BLACK OR BLOODY STOOL OR YOU HAVE ANY OTHER CONCERNS PLEASE RETURN TO THE EMERGENCY ROOM.
Interventions
Interventions:
*Risk Screen - Suicide Last Done: 11/03/24 20:42
*General Assessment Last Done: 11/03/24 20:42
*Neglect/Abuse Screening Last Done: 11/03/24 20:42
ED- Fall Risk Assessment Last Done: 11/03/24 20:42
*ED COVID-19 Vaccine History Last Done: 11/03/24 20:42
YT-Fhekwz-Yepktznohe Assessment Last Done: 11/03/24 20:42
Discharge Date and Time
Print Language: DIVEHI
== END 2024-11-03 22:32 | disposition home or self-care (01) ==
LOC: EMR 15:58
PROVIDERS: Emergency Medicine; EMERGENCY PHYSICIAN Emergency Medicine; FAMILY PHYSICIAN Internal Medicine
DX: R19.5 Other fecal abnormalities (principal); R07.9 Chest pain, unspecified; R60.0 Localized edema; I48.91 Unspecified atrial fibrillation; E11.9 Type 2 diabetes mellitus without complications; E78.00 Pure hypercholesterolemia, unspecified; I10 Essential (primary) hypertension; I25.10 Atherosclerotic heart disease of native coronary artery without angina pectoris; F41.9 Anxiety disorder, unspecified; M54.9 Dorsalgia, unspecified; G89.29 Other chronic pain; K21.9 Gastro-esophageal reflux disease without esophagitis; K58.9 Irritable bowel syndrome, unspecified; K50.90 Crohn's disease, unspecified, without complications; Z95.5 Presence of coronary angioplasty implant and graft; Z85.038 Personal history of other malignant neoplasm of large intestine; Z87.442 Personal history of urinary calculi; Z98.0 Intestinal bypass and anastomosis status; Z87.891 Personal history of nicotine dependence; Z90.49 Acquired absence of other specified parts of digestive tract; Z79.01 Long term (current) use of anticoagulants; Z79.82 Long term (current) use of aspirin; Z93.2 Ileostomy status
CPT/HCPCS: 99283; 80053; 81003; 81015; 85025

== ENCOUNTER 2024-11-22 16:43 | Emergency (ER) | payer MEDICARE, OTHER, SELFPAY ==
[2024-11-22] VITALS (7 sets, daily range): BP systolic 149–175; BP diastolic 68–82; BMI 26.7
[2024-11-22 17:21] LABS: % Basophils 0.6 % (0-2); % Eosinophils 1.6 % (0-6); % Immature Granulocytes 0.4 % (0-0.5); % Lymphocytes 8.7 % (20.5-51.1); % Monocytes 12.3 % (1.7-9.3); % Neutrophils 76.4 % (42.2-75.2); Absolute Basophils 0.1 10^3/uL (0-0.2); Absolute Eosinophils 0.2 10^3/uL (0-0.7); Absolute Lymphocytes 0.9 10^3/uL (1.2-3.4); Absolute Monocytes 1.2 10^3/uL (0.1-0.6); Absolute Neutrophils 7.7 10^3/uL (1.4-6.5); Hematocrit 38.4 % (39.0-52.0); Hemoglobin 12.5 g/dL (13.0-18.0); Mean Corp Hgb Conc. 32.6 g/dL (33.0-37.0); Mean Corpuscular Hgb 29.9 pg (27.0-31.0); Mean Corpuscular Volume 91.9 fL (80.0-94.0); Mean Platelet Volume 8.8 fL (7.4-10.4); Nucleated Red Blood Cells % 0 % (-); Platelet Count 327 10^3/uL (130-400); Red Blood Cell Count 4.18 10^6/uL (4.70-6.10); Red Cell Dist. Width 13.9 % (11.5-14.5); White Blood Cell Count 10.1 10^3/uL (4.8-10.8)
[2024-11-22 17:29] LABS: Lactic Acid 1.8 mmol/L (0.7-2.0)
[2024-11-22 17:34] LABS: ALT (SGPT) 14 U/L (0-50); AST (SGOT) 19 U/L (17-59); Alkaline Phosphatase 93 U/L (38-126); Blood Urea Nitrogen 9 mg/dl (9-20); Calcium 8.7 mg/dl (8.4-10.2); Carbon Dioxide 26 mmol/L (22-30); Chloride 100 mmol/L (98-107); Glucose 170 mg/dl (70-99); Lipase 64 U/L (23-300); Potassium 4.3 mmol/L (3.5-5.1); Sodium 136 mmol/L (135-145); Total Bilirubin 0.3 mg/dl (0.2-1.3); Total Protein 6.6 g/dl (6.3-8.2); eGFR > 60.00
--- NOTE | 2024-11-22 17:35 | ED.GENMED ---
History of Present Illness
<DO Edgar Michel Filed: 11/22/24 17:40>
General
Chief Complaint: Abdominal Pain
Source: patient and spouse
Exam Limitations: none
Time Seen by Provider: 11/22/24 17:24
History of Present Illness
History of Present Illness:
84-year-old male who presents with right-sided abdominal pain. He states it started 7 AM today. Patient states that the pain comes and goes. He states the sharp pain that comes on severe and goes away. He was little nauseous earlier but not now.
No diarrhea or melena. No hematochezia. Thought maybe was related to his ostomy bag so he changed it. Does admit that he feels like he is a little bit a cold sweat in his back but no back pain. No chest pain. No shortness of breath. Spouse
adds that patient was nauseous
Past History
<DO Edgar Michel Last Filed: 11/22/24 17:40>
Past History
ED Past Medical History: Arrthythmia (Atrial fib), CAD, Cancer (colon), GERD, HTN, Hypercholesterolemia, NIDDM, Psychiatric (Anxiety) and Other (Kidney stones, Crohns, Back pain, Sciatica, Tingling in arms and legs, Sinus infections. Eczema, IBS,
Chronic foot pain, )
ED Past Surgical History: Appendectomy, Bowel resection (Colon CA, with Ileostomy), Cardiac (Stents X2 RCA), Cholecystectomy and Other (Alvaro cataracts, Lipoma removed from left shoulder, Left eye stent, )
Social History
Tobacco: Former smoker
Alcohol: None
Drug: None
Personal:
Living: with family
Employment: Retired
Family History
Family History: Other (Noncontributory)
Phy Exam
<DO Edgar Michel Filed: 11/22/24 17:40>
Physical Exam
Physical Exam:
CONSTITUTIONAL Patient alert and oriented to person, place and time. Well-appearing. Vital signs reviewed.
HEAD atraumatic, normocephalic.
EYES eyelids normal to inspection, Extraocular muscles intact, Conjunctiva normal, Sclera normal.
NECK normal range of motion, Trachea midline, no jugular venous distention.
RESPIRATORY CHEST No respiratory distress noted, Chest expansion equal
ABDOMEN No distention. No focal tenderness on exam. Patient has an ostomy in the right mid abdomen. There is stool in the bag that is brown.
BACK normal inspection, no obvious deformities
UPPER EXTREMITY range of motion normal, Motor strength normal, no cyanosis, no edema.
LOWER EXTREMITY range of motion normal, Motor strength normal, no cyanosis, no edema.
NEURO Speech normal, No focal motor deficits, Gisela coma scale 15, Memory normal, Cranial Nerves intact to screening exam.
SKIN skin warm, dry, and normal in color.
Course
<Bobby Noriega, DO - Last Filed: 11/22/24 17:40>
Orders/Labs/Results
Orders:
Orders
11/22/24 17:01
Complete Blood Count/With Diff Urgent
Comprehensive Metabolic Panel Urgent
Lactic Acid Urgent
Lipase Urgent
11/22/24 17:34
CT Abd/pel W Iv And Oral Contr Urgent
Comment:
Reason For Exam: R sided abd pain
Iohexol [Omnipaque] See Protocol PO NOW STA
11/22/24 17:36
Electrocardiogram (*1) Stat
Reason for Study: Abdominal Pain
EKG- Treatment ONCE
11/22/24 23:00
Acetaminophen [Tylenol] 650 mg PO NOW STA
Abnormal Lab Results
11/22/24
17:01
RBC 4.18 L 10^6/uL
(4.70-6.10)
Hgb 12.5 L g/dL
(13.0-18.0)
Hct 38.4 L %
(39.0-52.0)
MCHC 32.6 L g/dL
(33.0-37.0)
Absolute Neuts (auto) 7.7 H 10^3/uL
(1.4-6.5)
Absolute Lymphs (auto) 0.9 L 10^3/uL
(1.2-3.4)
Absolute Monos (auto) 1.2 H 10^3/uL
(0.1-0.6)
Neutrophils % 76.4 H %
(42.2-75.2)
Lymphocytes % 8.7 L %
(20.5-51.1)
Monocytes % 12.3 H %
(1.7-9.3)
Glucose 170 H mg/dl
(70-99)
11/22/24 17:01
11/22/24 17:01
Vital Signs
Initial and Last Documented VS:
Initial Vital Signs
Temp Pulse Resp BP Pulse Ox
98.1 F 74 22 164/68 98
11/22/24 16:51 11/22/24 16:51 11/22/24 16:51 11/22/24 16:51 11/22/24 16:51
Last Documented Vital Signs
Temp Pulse Resp BP Pulse Ox
98.1 F 67 20 175/73 98
11/22/24 16:51 11/22/24 22:30 11/22/24 22:30 11/22/24 22:00 11/22/24 16:51
<Rusty Redman, DO - Last Filed: 11/22/24 23:01>
Orders/Labs/Results
Orders:
Orders
11/22/24 17:01
Complete Blood Count/With Diff Urgent
Comprehensive Metabolic Panel Urgent
Lactic Acid Urgent
Lipase Urgent
11/22/24 17:34
CT Abd/pel W Iv And Oral Contr Urgent
Comment:
Reason For Exam: R sided abd pain
Iohexol [Omnipaque] See Protocol PO NOW STA
11/22/24 17:36
Electrocardiogram (*1) Stat
Reason for Study: Abdominal Pain
EKG- Treatment ONCE
11/22/24 23:00
Acetaminophen [Tylenol] 650 mg PO NOW STA
Abnormal Lab Results
11/22/24
17:01
RBC 4.18 L 10^6/uL
(4.70-6.10)
Hgb 12.5 L g/dL
(13.0-18.0)
Hct 38.4 L %
(39.0-52.0)
MCHC 32.6 L g/dL
(33.0-37.0)
Absolute Neuts (auto) 7.7 H 10^3/uL
(1.4-6.5)
Absolute Lymphs (auto) 0.9 L 10^3/uL
(1.2-3.4)
Absolute Monos (auto) 1.2 H 10^3/uL
(0.1-0.6)
Neutrophils % 76.4 H %
(42.2-75.2)
Lymphocytes % 8.7 L %
(20.5-51.1)
Monocytes % 12.3 H %
(1.7-9.3)
Glucose 170 H mg/dl
(70-99)
11/22/24 17:01
11/22/24 17:01
Vital Signs
Initial and Last Documented VS:
Initial Vital Signs
Temp Pulse Resp BP Pulse Ox
98.1 F 74 22 164/68 98
11/22/24 16:51 11/22/24 16:51 11/22/24 16:51 11/22/24 16:51 11/22/24 16:51
Last Documented Vital Signs
Temp Pulse Resp BP Pulse Ox
98.1 F 67 20 175/73 98
11/22/24 16:51 11/22/24 22:30 11/22/24 22:30 11/22/24 22:00 11/22/24 16:51
<Bobby Noriega, DO - Last Filed: 11/22/24 17:40>
MDM/Problems Addressed
MDM/Problems Addressed:
Uncontrolled hypertension, abdominal pain, chronic colostomy, chronic disease
<Bobby Noriega, DO - Last Filed: 11/22/24 17:40>
*Pulse Oximetry
Patient hypoxic: no
*Critical Care Note
Total Time (30-74mins, 75-104mins- exclusive of procedures): Not Applicable
Data Reviewed
Review of Other/Old Records Reveals: Radiology Studies (Prior CT report reviewed from May 2024)
Source: patient and spouse
<Rusty Redman, DO - Last Filed: 11/22/24 23:01>
Update Note
Update Note:
7 PM ER attending, signout pending CT report reevaluation CT report noted many chronic findings, patient appears comfortable states he is hungry passing air into bag
Has some pain only with moving
ED Attending Note
<Bobby Noriega, DO - Last Filed: 11/22/24 17:40>
-
Portions of this chart may have been created with voice recognition software.� Occasional wrong word or��sound alike� substitutions may have occurred due to the inherent limitations of voice recognition software.
Discharge Plan
Departure
Patient Disposition: Home (Routine Discharge)
Date of Disposition: 11/22/24
Time of Disposition: 23:01
Patient with high blood pressure during this ER visit?: No
Condition: Good
Discharge Problem:
Abdominal pain
Instructions: Abdominal Pain
Prescriptions:
No Action
cyclobenzaprine 10 MG tablet
10 mg PO BIDPRN PRN (Reason: muscle spasm)
metformin 500 MG tablet
500 mg PO BID@0800,1700
atorvastatin 10 MG tablet
10 mg PO QPM
fluticasone propionate 1 SPRAY spray,suspension
2 spray intranasal DAILY
amlodipine 5 MG tablet
5 mg PO QPM
furosemide 20 MG tablet
20 mg PO MOWEFR
bimatoprost [Lumigan] 1 DROP drops
1 drp BOTH EYES QPM
citalopram 10 MG tablet
10 mg PO DAILY
pantoprazole 40 MG tablet,delayed release (DR/EC)
40 mg PO BID Qty: 60 0RF
aspirin 81 MG tablet,delayed release (DR/EC)
81 mg PO DAILY Qty: 0 0RF
Rx Instructions:
DO NOT RESUME UNTIL 12/20/20
apixaban [Eliquis] 5 MG tablet
5 mg PO BID Qty: 0 0RF
Rx Instructions:
DO NOT RESUME UNTIL 12/20/20
albuterol sulfate [Ventolin HFA] 90 MCG/PUFF HFA aerosol inhaler
1 puff inhalation Q6HPRN PRN (Reason: shortness of breath)
lidocaine [Aspercreme (lidocaine)] 1 PATCH adhesive patch,medicated
1 patch topical DAILY Qty: 30 0RF
Rx Instructions:
back
isosorbide mononitrate 30 MG tablet extended release 24 hr
30 mg PO DAILY Qty: 30 0RF
gabapentin 100 MG capsule
100 mg PO BID Qty: 60 0RF
oxycodone 10 MG tablet
10 mg PO Q4HPRN PRN (Reason: severe pain) Qty: 10 0RF
oxycodone-acetaminophen 5 MG/325 MG tablet
1 tablets PO Q8HPRN MDD 3 tabs PRN (Reason: moderate pain) 3 Days Qty: 6 0RF
Referrals:
JOELLE VELÁZQUEZ MD [Family Provider] - Next open appointment
Activity Restrictions/Additional Instructions:
Tylenol every 4-6 hours as needed for pain
Interventions
Interventions:
*Risk Screen - Suicide Last Done: 11/22/24 16:51
*General Assessment Last Done: 11/22/24 18:28
ED- Fall Risk Assessment Last Done: 11/22/24 18:28
*ED COVID-19 Vaccine History Last Done: 11/22/24 18:28
NP-Udvvnr-Tejyvqqsky Assessment Last Done: 11/22/24 18:27
Discharge Date and Time
Print Language: IRISH
[2024-11-22] MEDS: OMNIPAQUE 50 ML PO (17:55)
[2024-11-22] MEDS: TYLENOL 650 MG PO (23:07)
== END 2024-11-22 23:27 | disposition home or self-care (01) ==
LOC: EMR 16:43
PROVIDERS: Emergency Medicine; EMERGENCY PHYSICIAN Emergency Medicine; FAMILY PHYSICIAN Internal Medicine
DX: R10.9 Unspecified abdominal pain (principal); K50.90 Crohn's disease, unspecified, without complications; I48.91 Unspecified atrial fibrillation; I25.10 Atherosclerotic heart disease of native coronary artery without angina pectoris; K21.9 Gastro-esophageal reflux disease without esophagitis; I10 Essential (primary) hypertension; E78.00 Pure hypercholesterolemia, unspecified; E11.9 Type 2 diabetes mellitus without complications; Z85.038 Personal history of other malignant neoplasm of large intestine; Z87.442 Personal history of urinary calculi; Z87.891 Personal history of nicotine dependence; Z90.49 Acquired absence of other specified parts of digestive tract; Z93.3 Colostomy status; Z95.5 Presence of coronary angioplasty implant and graft
CPT/HCPCS: 99284; 74177; 80053; 83605; 83690; 85025; 93005; Q9967